=== PATIENT | female | born 1990 | race African-American/Black ===

== ENCOUNTER 2019-03-01 14:40 | Emergency (ER) | payer OTHER ==
[~2019-03-01] VITALS: Ht 160 cm; Wt 71.3 kg
[2019-03-01] MEDS ORDERED: ACET500T15 PO (14:47)
[2019-03-01] MEDS ORDERED: ACETAMINOPHEN 325 MG TAB PO ONE (15:15)
[2019-03-01] MEDS ORDERED: NS 2,140 ML in APPROPRIATE DILUENT 1 EA IV ONE (15:15)
[2019-03-01 15:44] LABS: BASO % 0.1 % (0.0-1.0); HEMATOCRIT 33.8 % (36.0-47.0); HEMOGLOBIN 11.8 g/dl (12.0-15.5); LYMPH # 0.5 10^3/uL (1.5-6.5); LYMPH % 5.1 % (24.0-44.0); MEAN CORPUSCULAR HEMOGLOBIN 28.4 pg (27.0-33.0); MEAN CORPUSCULAR HGB CONC 34.9 g/dl (32.0-36.5); MEAN CORPUSCULAR VOLUME 81.3 fl (80.0-96.0); MONO # 0.7 10^3/uL (0.0-0.8); MONO % 7.1 % (0.0-5.0); NEUTROPHILS # 8.1 10^3/uL (1.8-7.7); NEUTROPHILS % 87.1 % (36.0-66.0); PLATELET COUNT, AUTOMATED 240 10^3/uL (150-450); RED BLOOD COUNT 4.16 10^6/uL (4.00-5.40); WHITE BLOOD COUNT 9.3 10^3/uL (4.0-10.0)
[2019-03-01 16:07] LABS: APPEARANCE, URINE CLOUDY (CLEAR); BACTERIA, URINE AUTO 1+ (NEGATIVE); BILIRUBIN, URINE AUTO NEGATIVE (NEGATIVE); BLOOD, URINE BLOOD 1+ (NEGATIVE); COLOR, URINE YELLOW (YELLOW); GLUCOSE, URINE (UA) AUTO NEGATIVE (NEGATIVE); KETONE, URINE AUTO 1+ mg/dL (NEGATIVE); LEUKOCYTE ESTERASE, URINE AUTO 2+ (NEGATIVE); MUCUS, URINE SMALL (NEGATIVE); NITRITE, URINE AUTO POSITIVE (NEGATIVE); PROTEIN, URINE AUTO NEGATIVE (NEGATIVE); RBC, URINE AUTO 19 /HPF (0-3); SPECIFIC GRAVITY URINE AUTO 1.016 (1.002-1.035); SQUAMOUS EPITHELIAL CELL UR AU 7 /HPF (0-6); WBC, URINE AUTO 121 /HPF (0-3)
[2019-03-01 16:14] LABS: ALBUMIN 3.5 GM/DL (3.2-5.2); ALT/SGPT 15 U/L (12-78); AMYLASE 48 U/L (25-115); BILIRUBIN,DIRECT 0.2 MG/DL (0.0-0.2); BILIRUBIN,TOTAL 0.8 MG/DL (0.2-1.0); BLOOD UREA NITROGEN 7 MG/DL (7-18); CALCIUM LEVEL 8.8 MG/DL (8.5-10.1); CARBON DIOXIDE LEVEL 23 MEQ/L (21-32); CHLORIDE LEVEL 105 MEQ/L (98-107); CREATININE FOR GFR 0.74 MG/DL (0.55-1.30); GLOMERULAR FILTRATION RATE > 60.0 (>60); GLUCOSE, FASTING 91 MG/DL (70-100); POTASSIUM SERUM 3.4 MEQ/L (3.5-5.1); SODIUM LEVEL 135 MEQ/L (136-145); TOTAL PROTEIN 7.9 GM/DL (6.4-8.2)
[2019-03-01 16:15] LABS: HCG, SERUM QUALITATIVE NEGATIVE (NEGATIVE)
[2019-03-01] MEDS ORDERED: IBUPROFEN 800 MG TAB PO ONE (16:15)
[2019-03-01 16:21] LABS: INFLUENZA A AMPLIFICATION NEGATIVE (NEGATIVE); INFLUENZA B AMPLIFICATION NEGATIVE (NEGATIVE)
[2019-03-01] MEDS ORDERED: CIPROFLOXACIN 400 MG in APPROPRIATE DILUENT 1 EA IV ONE (16:30)
--- NOTE | 2019-03-01 16:51 | REP ---
At x-ray: Chest x-ray: Two views. History: Fever. Recent travel from [place]. . Comparison study: No comparison study . Findings: The lungs are well inflated and free of infiltrate. The pleural angles are sharp. The heart size is normal. Pulmonary vasculature is not increased. No significant bony abnormality is seen. Impression: Negative chest x-ray. Electronically Signed by Rikki Plascencia MD 03/01/2019 04:43 P
[2019-03-01 16:58] LABS: MAGNESIUM LEVEL 1.9 MG/DL (1.8-2.4)
[2019-03-01] MEDS ORDERED: CIPR250T3 PO (17:12)
[2019-03-01] MEDS ORDERED: CIPR-250 PO (18:28)
[2019-03-01 18:38] VITALS: BP 105/58
--- NOTE | 2019-03-02 05:53 | ECGEPIP ---
Stationary ECG Study [facility] - ED Test Date: 2019-03-01 Pat Name: JHONY PEREZ Department: Room: - Gender: F Manager Summer: uma : 1990 Requested By: Kaitlin Arce PA-C Order Number: [id number] Reading MD: Raymon Blue Measurements Intervals [place] Rate: 118 P: 70 NH: 132 QRS: 66 QRSD: 93 T: 49 QT: 315 QTc: 442 Interpretive Statements SINUS TACHYCARDIA INCOMPLETE RIGHT BUNDLE BRANCH BLOCK NO PRIORS FOR COMPARISON Electronically Signed On 03-02-2019 5:53:39 EDT by Raymon Blue
--- NOTE | 2019-03-02 07:12 | REP ---
CT abdomen and pelvis without IV or oral contrast: Renal stone protocol. History: Right flank pain. Question urolithiasis. No comparison imaging. CT findings: Preliminary digital crown and bridge technician radiograph demonstrates gaseous distension of multiple small and large bowel loops consistent with ileus versus enteritis. Axial images at the lung bases demonstrate no evidence of infiltrate or effusion. The liver and the spleen are normal in size homogeneous in texture. No abnormalities noted in the gallbladder. The pancreas is unremarkable. No evidence of adrenal abnormality is seen. There is a tiny 2 mm calculus in the right mid kidney. No hydronephrosis is seen. No left renal calculus is observed. A normal appendix is seen over the right psoas muscle. No definite ureteral calculus seen. No bladder calculus is observed. Uterus is tipped somewhat to the right but is unremarkable. No ovarian abnormality is seen. There is a small quantity of fluid in the cul-de-sac consistent with physiologic fluid. Exam is otherwise unremarkable. There is no evidence of free air or abdominal wall defect. No bony lesion is seen. Impression: Single 2 mm calculus right mid kidney. No evidence of hydronephrosis or ureteral stone. Normal appendix. Small sliver of physiologic fluid in the cul-de-sac. Mild ileus versus enteritis pattern in the bowel gas. Electronically Signed by Rikki Plascencia MD 03/02/2019 08:14 A
== END 2019-03-01 18:40 | disposition home or self-care (01) ==
LOC: M ED 14:40
DX: N39.0 Urinary tract infection, site not specified (principal); E87.6 Hypokalemia; E87.1 Hypo-osmolality and hyponatremia; D64.9 Anemia, unspecified; R00.0 Tachycardia, unspecified; I45.19 Other right bundle-branch block; N20.0 Calculus of kidney; Z88.1 Allergy status to other antibiotic agents
CPT/HCPCS: 71046; 74176; 80048; 80076; 81001; 82150; 83605; 83735; 84703; 85025; 86140; 87040; 87077; 87088; 87186; 87502; 93005; 96365; 96366; 99284; J0744

== ENCOUNTER → 2019-04-28 | Outpatient (REF) | payer BC ==
[~2019-04-28] MED LIST: ACET500T15 PO; CIPR-250 PO; CIPR250T3 PO
[2019-04-28 13:38] LABS: HEMATOCRIT 33.4 % (36.0-47.0); HEMOGLOBIN 11.6 g/dl (12.0-15.5); MEAN CORPUSCULAR HEMOGLOBIN 29.1 pg (27.0-33.0); MEAN CORPUSCULAR HGB CONC 34.7 g/dl (32.0-36.5); MEAN CORPUSCULAR VOLUME 83.7 fl (80.0-96.0); PLATELET COUNT, AUTOMATED 261 10^3/uL (150-450); RED BLOOD COUNT 3.99 10^6/uL (4.00-5.40); WHITE BLOOD COUNT 4.5 10^3/uL (4.0-10.0)
[2019-04-28 14:12] LABS: SICKLE CELL SCREEN POSITIVE (NEGATIVE)
[2019-04-29 09:10] LABS: HCG, SERUM QUANTITATIVE 155630 MIU/ML; HEPATITIS C VIRUS ABY INDEX 0.1 INDEX (<0.8); HIV 1&2 SCREEN CENTAUR NEGATIVE (NEGATIVE); RUBELLA IgG QUALITATIVE IMMUNE (IMMUNE)
[2019-05-01 00:07] LABS: HEMOGLOBIN A 55.9 % (96.4-98.8); HEMOGLOBIN A2 3.8 % (1.8-3.2); HEMOGLOBIN S 39.3 % (0.0); HGB SOLUBILITY Positive (Negative)
== END ==
LOC: M LAB REF 12:50
PROVIDERS: ATTEND Obstetrics & Gynecology
DX: Z34.81 Encounter for supervision of other normal pregnancy, first trimester (principal)

== ENCOUNTER 2019-06-07 00:17 | Emergency (ER) | payer BC, OTHER ==
[~2019-06-07] VITALS: Ht 165.1 cm; Wt 69.7 kg
[2019-06-07] MEDS ORDERED: PRENTAB53 PO (00:22)
[2019-06-07 01:32] LABS: BASO % 0.2 % (0.0-1.0); EOS # 0.1 10^3/uL (0.0-0.50); EOS % 1.2 % (0.0-3.0); HEMATOCRIT 29.5 % (36.0-47.0); HEMOGLOBIN 10.2 g/dl (12.0-15.5); LYMPH # 1.3 10^3/uL (1.5-6.5); LYMPH % 26.5 % (24.0-44.0); MEAN CORPUSCULAR HEMOGLOBIN 29.5 pg (27.0-33.0); MEAN CORPUSCULAR HGB CONC 34.6 g/dl (32.0-36.5); MEAN CORPUSCULAR VOLUME 85.3 fl (80.0-96.0); MONO # 0.5 10^3/uL (0.0-0.8); MONO % 9.3 % (0.0-5.0); NEUTROPHILS # 3.2 10^3/uL (1.8-7.7); NEUTROPHILS % 62.4 % (36.0-66.0); PLATELET COUNT, AUTOMATED 241 10^3/uL (150-450); RED BLOOD COUNT 3.46 10^6/uL (4.00-5.40); WHITE BLOOD COUNT 5.1 10^3/uL (4.0-10.0)
[2019-06-07 02:27] VITALS: BP 117/68
--- NOTE | 2019-06-07 03:53 | REPVR ---
EXAM: US First Trimester, Transabdominal EXAM DATE/TIME: 06/07/2019 1:30 AM CLINICAL HISTORY: 29 years old, female; Lmp or gestational age (in weeks): 13w 3d; Other: Vaginal spotting; ; Additional info: Vaginal bleeding TECHNIQUE: Imaging protocol: Real-time transabdominal obstetrical ultrasound of the maternal pelvis and a first trimester , less than 14 weeks 0 days, with image documentation. COMPARISON: CT ABD PELVIS W/O CONTRAST 03/01/2019 4:14 PM FINDINGS: GESTATION: Gestation: Single live intrauterine gestation. Heart rate: 153 beats per minute. Placenta: No discrete abnormalities to suggest subchorionic hematoma. BIOMETRY: Estimated gestational age: CRL of 7.6 cm corresponds to a 13 weeks 5 days gestational age. MATERNAL: Uterus: No discrete abnormalities. Right adnexa: No discrete abnormalities. Left adnexa: No discrete abnormalities. IMPRESSION: Single live intrauterine gestation of approximately 13 weeks 5 days size. Electronically signed by: Mark Mckay On 06/07/2019 03:53:06 AM
== END 2019-06-07 02:50 | disposition home or self-care (01) ==
LOC: M ED 00:17
DX: O20.9 Hemorrhage in early pregnancy, unspecified (principal); R10.2 Pelvic and perineal pain; Z88.8 Allergy status to other drugs, medicaments and biological substances; Z3A.13 13 weeks gestation of pregnancy

== ENCOUNTER → 2019-08-14 | Outpatient (REF) | payer OTHER ==
[~2019-08-14] MED LIST changes: +PRENTAB53 PO
== END ==
LOC: M LAB REF 13:17
PROVIDERS: ATTEND Obstetrics & Gynecology
DX: Z36.89 Encounter for other specified antenatal screening (principal); Z3A.00 Weeks of gestation of pregnancy not specified

== ENCOUNTER → 2019-09-16 | Outpatient (CLI) | payer OTHER ==
[2019-09-16 15:33] LABS: HEMATOCRIT 29.3 % (36.0-47.0); HEMOGLOBIN 9.5 g/dl (12.0-15.5); MEAN CORPUSCULAR HEMOGLOBIN 28.3 pg (27.0-33.0); MEAN CORPUSCULAR HGB CONC 32.4 g/dl (32.0-36.5); MEAN CORPUSCULAR VOLUME 87.2 fl (80.0-96.0); PLATELET COUNT, AUTOMATED 316 10^3/uL (150-450); RED BLOOD COUNT 3.36 10^6/uL (4.00-5.40); WHITE BLOOD COUNT 7.9 10^3/uL (4.0-10.0)
== END ==
LOC: M LAB 13:49
PROVIDERS: ATTEND Obstetrics & Gynecology
DX: Z34.83 Encounter for supervision of other normal pregnancy, third trimester (principal); Z3A.00 Weeks of gestation of pregnancy not specified

== ENCOUNTER → 2019-11-17 | Outpatient (REF) | payer OTHER | LOC: M LAB REF 12:19 | PROVIDERS: ATTEND Obstetrics & Gynecology | DX: Z34.83 Encounter for supervision of other normal pregnancy, third trimester (principal); Z36.85 Encounter for antenatal screening for Streptococcus B ==

== ENCOUNTER 2019-12-15 11:10 | Inpatient (IN) | payer OTHER ==
[2019-12-15] VITALS (13 sets, daily range): BP systolic 104–155; BP diastolic 56–83
[~2019-12-15] VITALS: Ht 170.2 cm; Wt 86.9 kg
[2019-12-15] MEDS ORDERED: ZYRTTAB8 PO (11:53)
[2019-12-15] MEDS ORDERED: LACTATED RINGER'S 1000 ML IV STA (12:22)
[2019-12-15] MEDS: LR 1,000 ML IV SCH ×2 (13:05→20:29)
[2019-12-15 13:48] LABS: BASO % 0.1 % (0.0-1.0); EOS % 0.3 % (0.0-3.0); HEMATOCRIT 26.9 % (36.0-47.0); HEMOGLOBIN 8.2 g/dl (12.0-15.5); LYMPH # 0.8 10^3/uL (1.5-5.0); LYMPH % 11.8 % (24.0-44.0); MEAN CORPUSCULAR HEMOGLOBIN 22.8 pg (27.0-33.0); MEAN CORPUSCULAR HGB CONC 30.5 g/dl (32.0-36.5); MEAN CORPUSCULAR VOLUME 74.9 fl (80.0-96.0); MONO # 0.5 10^3/uL (0.0-0.8); MONO % 6.5 % (0.0-5.0); NEUTROPHILS # 5.6 10^3/uL (1.5-8.5); NEUTROPHILS % 80.9 % (36.0-66.0); PLATELET COUNT, AUTOMATED 316 10^3/uL (150-450); RED BLOOD COUNT 3.59 10^6/uL (4.00-5.40)
[2019-12-15] MEDS ORDERED: AMPICILLIN SOD 2 GM in APPROPRIATE DILUENT 20 ML IV STA (14:19)
[2019-12-15] MEDS ORDERED: OXYTOCIN 30 UNITS IN 0.9% NaCl 500ML IV BAG (J2590) As Ordered ONE (16:43)
[2019-12-15] MEDS ORDERED: OXYTOCIN DRIP 30 UNITS in IV 1 EA IV SCH ×2 (16:45→22:40)
[2019-12-15] MEDS ORDERED: FENTANYL 2MCG/ML ROPIVACAINE 0.2% IN 0.9% NACL 100ML IVBAG As Ordered ONE (17:32)
[2019-12-15] MEDS ORDERED: EPIDURAL/PCA KEYS XX PRN (19:00)
[2019-12-15] MEDS ORDERED: NALOXONE INJ 0.4 MG/1 ML VIAL (J2310) IV PRN (19:00)
[2019-12-15] MEDS ORDERED: ePHEDrine SULFATE 25 MG/5 ML(5MG/ML) SYRINGE IV PRN (19:00)
[2019-12-15] MEDS ORDERED: AMPICILLIN SOD 1 GM in APPROPRIATE DILUENT 10 ML IV SCH (19:00)
[2019-12-15] MEDS ORDERED: REFRIGERATOR IV KEYS XX PRN (19:00)
[2019-12-15] MEDS ORDERED: diphenhydrAMINE INJ 50MG/ML VIAL (J1200) IV PRN (19:00)
[2019-12-15] MEDS ORDERED: EPIDURAL COMMENT XX SCH (19:00)
[2019-12-15] MEDS ORDERED: ONDANSETRON 4MG/2ML VIAL (J2405) IV PRN (19:00)
[2019-12-15] MEDS ORDERED: LACTATED RINGER'S 1000 ML IV PRN (19:00)
[2019-12-15] MEDS ORDERED: FENTANYL/ROPIVACAINE/NACL BAG 100 ML EPIDURAL SCH (19:00)
[2019-12-15] MEDS ORDERED: MEASLES,MUMPS,RUBELLA VACCINE INJ (MMR-II) (90707) SC SCH (22:45)
[2019-12-15] MEDS ORDERED: DIBUCAINE 1% OINTMENT 30GM TOP PRN (22:45)
[2019-12-15] MEDS ORDERED: ANUSOL HC CREAM 30GM TOP PRN (22:45)
[2019-12-15] MEDS ORDERED: METHYLERGONOVINE MALEATE 0.2 MG TAB PO PRN (22:45)
[2019-12-15] MEDS ORDERED: RHOGAM 300 MCG (1500 IU) INJ (J2790) IM SCH (22:45)
[2019-12-15] MEDS ORDERED: DOCUSATE SODIUM 100 MG CAP PO PRN (22:45)
[2019-12-15] MEDS ORDERED: IBUPROFEN 600 MG TAB PO PRN (22:45)
[2019-12-15] MEDS ORDERED: ACETAMINOPHEN TAB 650MG DOSE (2X325MG) PO PRN (22:45)
[2019-12-15 22:54] LABS: CORD GAS ABE A -9.1; CORD GAS ABE V -7.8; CORD GAS HCO3 A 19.9 MEQ/L; CORD GAS HCO3 V 18.6 MEQ/L; CORD GAS O2 SAT A 22.4 %; CORD GAS O2 SAT V 49.7 %; CORD GAS PCO2 A 54.3 mmHg; CORD GAS PCO2 V 41.1 mmHg; CORD GAS PH A 7.182 UNITS; CORD GAS PH V 7.273 UNITS; CORD GAS PO2 A 15.7 mmHg; CORD GAS PO2 V 22.9 mmHg; CORD GAS SBC A 15.6 MEQ/L; CORD GAS SBC V 17.1 MEQ/L; CORD GAS TCO2 A 21.6 MEQ/L; CORD GAS TCO2 V 19.8 MEQ/L
--- NOTE | 2019-12-15 23:41 | HPE ---
DATE OF ADMISSION: 12/15/2019 Radha is a 29-year-old female 2, para 0-0-1-0 with an estimated date of confinement (EDC) of 12/09/2019, estimated gestational age (EGA) 40-6/7 weeks gestation who presented to labor and delivery with complaints of contractions every 4-5 minutes. Upon evaluation she was found to be in early labor. At this point, a decision was made for admission. Her record reviewed, which was essentially unremarkable. LAB: Blood type is B+, rubella immune, hepatitis negative, HIV negative, GC, chlamydia negative, 1-hour sugar testing was within normal limits. Her GBS is positive. PAST MEDICAL HISTORY: Significant for measles in her childhood. PAST SURGICAL HISTORY: Denies. SOCIAL HISTORY: She is . Denies any alcohol, drugs or cigarette smoking. REVIEW OF SYSTEMS: Unremarkable. FAMILY HISTORY: Unremarkable. MEDICATIONS: vitamins. ALLERGIES: To FLAGYL. PHYSICAL EXAMINATION: Normal appearing female in no acute distress. Abdomen: Soft, nontender, nondistended. Extremities: No clubbing, cyanosis or edema. Vaginal exam: 2-3 cm dilated, 80% effaced, fetus at -3 station, vertex position. Tracing reviewed, category one tracing. ASSESSMENT: Intrauterine at 40-6/7 weeks gestation in early labor. PLAN: Admit to labor and delivery. Routine labs sent. Pain management discussed. The patient opts for an epidural. Will continue to monitor. Anticipate delivery.
[2019-12-16] MEDS: IBUPROFEN 800 MG TAB PO PRN ×2 (00:38→13:56)
[2019-12-16 01:00] VITALS: BP 153/78
[2019-12-16 03:00] VITALS: BP 120/63
[2019-12-16] MEDS: ACETAMINOPHEN 500 MG TAB PO PRN (05:47)
[2019-12-16 05:52] VITALS: BP 138/65
--- NOTE | 2019-12-16 10:19 | DN ---
DATE: 12/15/2019 Radha is a 29-year-old female 2, para 0-0-1-0 who was admitted at 40-5/7 weeks gestation in early labor. She progressed to fully dilated, had artificial rupture of membrane after an epidural. She then pushed and delivered a live female in left occiput anterior position over an intact perineum. Agars 8 and 9, weight 6 pounds 14 ounces. Placenta delivered spontaneously intact. Three-vessel cord. Perineum, vagina and cervix inspected. No laceration noted. Estimated blood loss 300 mL. Both mother and baby in stable condition.
[2019-12-16] MEDS: PRENATAL VITAMINS CHEWABLE TABLET PO SCH (10:57)
[2019-12-16 18:00] VITALS: BP 124/70
[2019-12-17] MEDS: IBUPROFEN 800 MG TAB PO PRN (05:31)
[2019-12-17 05:57] VITALS: BP 127/76
[2019-12-17] MEDS: PRENATAL VITAMINS CHEWABLE TABLET PO SCH (09:11)
[2019-12-17] MEDS: ACETAMINOPHEN 500 MG TAB PO PRN (09:11)
== END 2019-12-17 12:58 | disposition home or self-care (01) | DRG 560 ==
LOC: M LDO 11:10 → M LDI 12:29 → M OBS 12-16 03:03
PROVIDERS: ADMIT Obstetrics & Gynecology; ATTEND Obstetrics & Gynecology
PROC: 10E0XZZ Delivery of Products of Conception, External Approach (ICD-10-PCS; principal; 2019-12-15)
PROC: 10907ZC Drainage of Amniotic Fluid, Therapeutic from Products of Conception, Via Natural or Artificial Opening (ICD-10-PCS; 2019-12-15)
DX: O48.0 Post-term pregnancy (principal); Z3A.40 40 weeks gestation of pregnancy; Z37.0 Single live birth; O99.824 Streptococcus B carrier state complicating childbirth

== ENCOUNTER 2023-06-22 00:30 | Emergency (ER) | payer OTHER ==
[~2023-06-22] VITALS: Ht 167.6 cm; Wt 77.2 kg
[~2023-06-22 00:30] MED LIST changes: +ZYRTTAB8 PO
[2023-06-22 01:25] LABS: BASO % 0.2 % (0.0-1.0); EOS # 0.1 10^3/uL (0.0-0.5); EOS % 0.7 % (0.0-3.0); HEMATOCRIT 34.8 % (36.0-47.0); HEMOGLOBIN 11.7 g/dl (12.0-15.5); LYMPH # 1.7 10^3/uL (1.5-5.0); MEAN CORPUSCULAR HEMOGLOBIN 29.1 pg (27.0-33.0); MEAN CORPUSCULAR HGB CONC 33.6 g/dl (32.0-36.5); MEAN CORPUSCULAR VOLUME 86.6 fl (80.0-96.0); MONO % 11.3 % (2.0-8.0); NEUTROPHILS # 5.7 10^3/uL (1.5-8.5); PLATELET COUNT, AUTOMATED 422 10^3/uL (150-450); RED BLOOD COUNT 4.02 10^6/uL (4.00-5.40); WHITE BLOOD COUNT 8.6 10^3/uL (4.0-10.0)
[2023-06-22 01:51] LABS: LIPASE 29 U/L (12-53)
[2023-06-22 01:54] LABS: ALBUMIN 2.9 G/DL (3.2-5.2); ALKALINE PHOSPHATASE 178 U/L (46-116); ALT/SGPT 122 U/L (7.0-40); AST/SGOT 35 U/L (<34); BILIRUBIN,DIRECT 0.1 MG/DL (<0.4); BILIRUBIN,TOTAL 0.3 MG/DL (0.3-1.2); BLOOD UREA NITROGEN 10 MG/DL (9-23); CALCIUM LEVEL 9.1 MG/DL (8.5-10.1); CARBON DIOXIDE LEVEL 26 MMOL/L (20-31); CHLORIDE LEVEL 102 MMOL/L (98-107); CREATININE FOR GFR 0.71 MG/DL (0.55-1.30); GLOMERULAR FILTRATION RATE > 60.0 (>60); GLUCOSE, FASTING 102 MG/DL (60-100); POTASSIUM SERUM 3.7 MMOL/L (3.5-5.1); SODIUM LEVEL 138 MMOL/L (136-145); TOTAL PROTEIN 7.6 G/DL (5.7-8.2)
[2023-06-22 01:57] LABS: RSV AMPLIFICATION NEGATIVE (NEGATIVE)
[2023-06-22 08:50] LABS: HCG, SERUM QUALITATIVE NEGATIVE (NEGATIVE)
[2023-06-22 09:33] LABS: ACETAMINOPHEN LEVEL < 2.0 UG/ML (10.0-20.0)
[2023-06-22 10:41] LABS: CK-MB VALUE MASS < 1.0 NG/ML (<3.6)
[2023-06-22 10:42] LABS: CPK CREATINE PHOSPHOKINASE 45 U/L (34-145); MB/CK RELATIVE INDEX 2.22 (< OR =4)
[2023-06-22] MEDS ORDERED: KETOROLAC 30 MG/ML 1ML VIAL IV ONE (11:05)
[2023-06-22] MEDS ORDERED: ONDANSETRON 4MG 2ML VIAL IV ONE (11:05)
[2023-06-22] MEDS ORDERED: ISOVUE-370 76% 100ML VIAL As Ordered ONE (11:07)
[2023-06-22 13:06] VITALS: BP 121/78; TEMP 97; O2SAT 100
[2023-06-25] MEDS ORDERED: NITR1CAP11 PO (07:49)
== END 2023-06-22 13:08 | disposition home or self-care (01) ==
LOC: M ED 00:30
DX: R10.9 Unspecified abdominal pain (principal); K76.89 Other specified diseases of liver; K76.0 Fatty (change of) liver, not elsewhere classified; R00.0 Tachycardia, unspecified; Z88.8 Allergy status to other drugs, medicaments and biological substances; Z79.899 Other long term (current) drug therapy
CPT/HCPCS: 71046; 71275; 74177; 76705; 80048; 80076; 80143; 81001; 82550; 82553; 83690; 84484; 84703; 85025; 85379; 87088; 87186; 87631; 93005; 96374; 96375; 99284; J1885; J2405; Q9967

== ENCOUNTER → 2025-09-10 | Outpatient (CLI) | payer OTHER ==
[~2025-09-10] MED LIST changes: +NITR100C3 PO
== END ==
LOC: M RAD 13:57
PROVIDERS: ATTEND Internal Medicine
DX: R93.421 Abnormal radiologic findings on diagnostic imaging of right kidney (principal)